=== PATIENT | male | born 1960 | race Caucasian/White ===

== ENCOUNTER 2024-05-25 19:50 | Emergency (ER) | payer OTHER, SELFPAY ==
[2024-05-25] VITALS (10 sets, daily range): BP systolic 99; BP diastolic 61; PULSE 56–81; RESP 16; TEMP 36.7; O2SAT 94–96; BMI 26.9
--- NOTE | 2024-05-25 20:26 | ED_ITS ---
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 He did have any specific injury or specific episode where he started having pain in his shoulders at work. However, yesterday throughout the day he was having an ache in his left shoulder in the top of the shoulder and a little bit into the back shoulder. It also spread to his right shoulder. He is not having any intrascapular back pain. No neck pain. No anterior chest pain. He is not feeling any palpitations. No shortness of breath. No recent cough. No fever. No abdominal pain. He reported to the triage nurse that he has had episodes of shoulder discomfort in the past when he has been stressed. However he denies any current stressors. He has a history of high blood pressure but his regular doctor took him off his lisinopril. He thought that his blood pressure might be too high today so he did take 1 of his old leftover lisinopril is a. Symptoms have not changed after taking that. Related Data Home Medications ?Medication ?Instructions ?Recorded ?Confirmed lisinopril 5 mg tablet 5 mg PO DAILY 05/25/24 05/25/24 Allergies Allergy/AdvReac Type Severity Reaction Status Date / Time No Known Drug Allergies Allergy Verified 05/25/24 20:10 [facility] Social History Smoking Status: Never smoker Do you use any of these nicotine containing products: None How often do you have a drink containing alcohol: never How often do you have six or more drinks on one occasion: Never AUDIT-C Alcohol total score: 0 Non-prescribed substance use: denies use service: No Exam Narrative: Exam Narrative: Constitutional: Appears well-developed and well-nourished. Alert. Conversant through marketing reporting analyst and is fairly fluent in [place] as well.. Non toxic. HENT: Head: Atraumatic. Nose: Nose normal. Mouth/Throat: Oral mucosa is clear and moist. no trismus. Pharynx normal. Tonsils symmetric. No tonsillar enlargement, erythema, or exudate. Eyes: Conjunctivae normal. EOM normal. Pupils equal, round, and reactive to light. No scleral icterus. Neck: Normal range of motion. Neck supple. No tracheal deviation present. No JVD Cardiovascular: Normal rate, regular rhythm. No gallop. No friction rub. No murmur heard. Symmetric radial artery pulses Pulmonary/Chest: Effort normal. No stridor. No respiratory distress. No wheezes. No rales. No rhonchi . No tenderness. Abdominal: Soft. Bowel sounds normal. No distension. No mass. No tenderness. No rebound. No guarding. Musculoskeletal: No C or T-spine tenderness RUE: Normal range of motion. Has a shoulder ache and mild tenderness over the lateral and posterior deltoid. No swelling. No redness. No crepitus. tenderness. No deformity LUE: Normal range of motion. Clavicle nontender. mild tenderness over the lateral and posterior deltoid. No redness. No swelling. No crepitus No deformity Bilaterally humeri, elbows, forearms, wrists, hands, fingers are normal. RLE: Normal range of motion. No edema. No tenderness. No deformity LLE: Normal range of motion. No edema. No tenderness. No deformity Lymph: No cervical adenopathy. Neurological: Mental status normal. Attention normal. Alert and oriented x3. GCS 15. Memory normal. Cognition normal. Cranial Nerves intact II-XII except I did not formally test gag or visual acuity. EOMI. Palate elevates symmetrically and tongue protrudes in the midline. Strength: 5/5 trapezius on the right and left 5/5 deltoid on the right and left 5/5 biceps on the right and left 5/5 triceps on the right and left 5/5 trainer on the right and left 5/5 thumb opposition on the right and le ft 5/5 finger abduction on the right and le ft 5/5 hip flexors (L3) on the right and le ft 5/5 quadriceps (L4) on the right and lef t 5/5 tibialis anterior on the right and l eft 5/5 EHL (L5) on the right and left 5/5 gastrocnemius (S1) on the right and left 5/5 hamstring on the right and left Sensation intact to light touch in both upper extremities (C4-T1) Sensation intact to light touch in Both lower extremities (L4-S1). Finger to nose and coordination normal. Gait normal. Skin: Skin is warm and dry. No rash noted. No pallor. Normal capillary refill. Psychiatric: Normal mood. Normal affect. Const: Vital Signs, click to edit/add: Vital Signs - 24 hr 05/25/24 20:00 05/25/24 21:29 05/25/24 21:30 Temperature 98.1 F Pulse Rate 61 61 Pulse Rate [Left P ulse Oximeter] 81 Respiratory Rate 16 Blood Pressure [Ri ght Upper Arm] 99/61 Pulse Oximetry 95 94 94 Oxygen Delivery Me thod Room Air 05/25/24 21:45 05/25/24 22:00 05/25/24 22:15 Temperature Pulse Rate 58 L 58 L 57 L Pulse Rate [Left P ulse Oximeter] Respiratory Rate Blood Pressure [Ri ght Upper Arm] Pulse Oximetry 94 94 95 Oxygen Delivery Me thod 05/25/24 22:30 05/25/24 22:45 05/25/24 23:00 Temperature Pulse Rate 60 57 L 56 L Pulse Rate [Left P ulse Oximeter] Respiratory Rate Blood Pressure [Ri ght Upper Arm] Pulse Oximetry 94 96 94 Oxygen Delivery Me thod 05/25/24 23:15 Temperature Pulse Rate 61 Pulse Rate [Left P ulse Oximeter] Respiratory Rate Blood Pressure [Ri ght Upper Arm] Pulse Oximetry 95 Oxygen Delivery Me thod Course Vital Signs Vital signs: Initial Vital Signs Temperature 98.1 F 05/25/24 20:00 Temperature Source Temporal Artery Scan 05/25/24 20:00 Pulse Rate 81 05/25/24 20:00 Pulse Rhythm Regular 05/25/24 20:00 Respiratory Rate 16 05/25/24 20:00 Blood Pressure 99/61 05/25/24 20:00 Blood Pressure Mean 73 05/25/24 20:00 Blood Pressure Position Sitting 05/25/24 20:00 Pulse Oximetry 95 05/25/24 20:00 Oxygen Delivery Method Room Air 05/25/24 20:00 Vital Signs Temperature 98.1 F 05/25/24 20:00 Pulse Rate 81 05/25/24 20:00 Respiratory Rate 16 05/25/24 20:00 Blood Pressure 99/61 05/25/24 20:00 Pulse Oximetry 95 05/25/24 20:00 Oxygen Delivery Method Room Air 05/25/24 20:00 Temperature 98.1 F 05/25/24 20:00 Pulse Rate 61 05/25/24 23:15 Respiratory Rate 16 05/25/24 20:00 Blood Pressure 99/61 05/25/24 20:00 Pulse Oximetry 95 05/25/24 23:15 Oxygen Delivery Method Room Air 05/25/24 20:00 Medications Administered Medications: Discontinued Medications Generic Name Dose Route Start Last Admin Trade Name Cholo PRN Reason Stop Dose Admin Aspirin 162 mg 05/25/24 20:52 05/25/24 21:05 Aspirin 81 Mg Tab.Chew PO 05/25/24 20:53 162 mg ONCE ONE Administration Medical Decision Making MDM Narrative Medical decision making narrative: This patient presents to the ER today for evaluation of bilateral shoulder pain without any chest pain or associated back pain.. Differential was broad. No evidence of palpitations, syncope or other cardiac dysrhythmia. We considered possible ACS, however workup with EKG and troponin is negative. Given time since onset of symptoms, I do not think the patient needs to be admitted for further sets of enzymes. EKG shows no evidence for pericarditis. Clinical presentation not suggestive of myocarditis. He did take an extra lisinopril today (not normally supposed to be on lisinopril at all) because he thought his blood pressure might be high. Tonight and ER blood pressure has been low normal at about 99/61. Would advise that he hold off on for the lisinopril until he rechecks with his primary care provider. Chest x-ray shows no evidence for pneumonia, pneumothorax, pulmonary edema, pleural effusion, rib fracture, cardiomegaly. Mediastinum is normal on the x-ray. The patient has no ripping or tearing pain through to the back and has symmetric pulses on exam, no other acute neuro findings so I doubt aortic dissection. Risk of radiation and contrast exposure would outweigh the benefit of CT angiogram. We considered PE for this patient. D-dimer is normal. No wheezing or bronchospasm to suggest COPD/asthma. No signs of chest wall cellulitis, shingles. He has no specific fall or injury or thought immediate onset of pain but he wonders if his shoulder pain could be due to overuse at work. He was lifting some heavy trays and pallets up above shoulder height a couple of days ago. No associated neck pain or numbness or weakness down his arms to suggest cervical radiculopathy. At this point I do not think he needs emergency C-spine MRI, MRs of his shoulder. Would recommend follow-up primary care for further evaluation. With reasonable clinical confidence, I think the patient is safe for outpatient follow up. Discussed return precautions. Questions answered. Patient voices comfort with the plan. Lab Data Labs: Lab Results 05/25/24 Range/Units 20:29 WBC 5.72 (4.50-11.00) K/uL RBC 4.80 (4.30-5.90) m/uL Hgb 14.1 (13.5-17.5) gm/dL Hct 41.8 (37.0-53.0) % MCV 87 (80-100) fL MCH 29 (26-34) pg MCHC 34 (32-36) gm/dL RDW Coeff of [place] 12.3 (11.5-15.5) % Plt Count 243 (140-440) K/uL Neut % (Auto) 60.0 (42.0-72.0) % Lymph % (Auto) 31.1 (20-44) % [place] % (Auto) 6.8 (0.0-11.0) % Eos % (Auto) 1.9 (0.0-7.0) % Baso % (Auto) 0.2 (0.0-3.0) % Neut # (Auto) 3.43 (1.7-7.0) K/uL Lymph # (Auto) 1.78 (0.90-2.90) K/uL [place] # (Auto) 0.40 (0.00-0.90) K/UL Eos # (Auto) 0.11 (0.00-0.50) K/uL Baso # (Auto) 0.01 (0.00-0.30) K/uL Abs Immat Gran (auto) 0.00 (0.00-0.30) K/uL Imm/Tot Granulo (auto) 0.0 % D-Dimer Quant (PE/DVT) 0.24 (0.00-0.50) ug/ml Sodium 140 (135-149) mmol/L Potassium 3.6 (3.6-5.1) mmol/L Chloride 103 (96-114) mmol/L Carbon Dioxide 26 (20-32) mmol/L Anion Gap 11 (7-15) mEq/L BUN 18 (7-30) mg/dL Creatinine 1.2 (0.5-1.5) mg/dL Estimated Creat Clear 52.76 Estimated GFR 68 ml/min Glucose 109 (60-115) mg/dL Calcium 9.4 (8.4-10.6) mg/dL Troponin I < 0.01 L (0.01-0.04) ng/mL ECG Data Attestation: I personally reviewed and interpreted this ECG as follows: Interpretation: Normal sinus rhythm Rate: 69 [place]: 190 QRS axis: Normal axis. No pathologic Q-waves. ST segment/T wave: No ST segment elevation or depression. QTc: 411 Discharge Plan Discharge Prescriptions: No Action lisinopril 5 mg tablet 5 mg PO DAILY Follow Up/Referrals: Dung Mercado MD [Primary Care Provider] -
--- NOTE | 2024-05-25 20:52 | CRLHL7_ITS ---
For Patients: As a result of the Century Cures Act, medical imaging exams and procedure reports are released immediately into your electronic medical record. You may view this report before your referring provider. If you have questions, please contact your health care provider. INDICATION: Bilateral shoulder pain. TECHNIQUE: Chest 2 view. COMPARISON: Chest radiograph 11/05/2010. FINDINGS: No focal consolidation, pleural effusion, or pneumothorax. Normal heart size and pulmonary vascularity. Tortuous aorta. Degenerative changes of the lower thoracic spine. No acute osseous abnormality identified. IMPRESSION: No acute cardiopulmonary findings. Dictated by Cece Corona MD @ 05/25/2024 10:21:12 PM (Electronically Signed)
[2024-05-25 21:05] LABS: Basophils Absolute Auto 0.01 K/uL (0.00-0.30); Basophils Percent Auto 0.2 % (0.0-3.0); Eosinophils Absolute Auto 0.11 K/uL (0.00-0.50); Eosinophils Percent Auto 1.9 % (0.0-7.0); Hematocrit 41.8 % (37.0-53.0); Hemoglobin* 14.1 gm/dL (13.5-17.5); Lymphocytes Absolute Auto 1.78 K/uL (0.90-2.90); Lymphocytes Percent Auto 31.1 % (20-44); Mean Corpuscular HGB Conc 34 gm/dL (32-36); Mean Corpuscular Hemoglobin 29 pg (26-34); Mean Corpuscular Volume 87 fL (80-100); Monocytes Percent Auto 6.8 % (0.0-11.0); Neutrophils Absolute Auto 3.43 K/uL (1.7-7.0); Platelet Count* 243 K/uL (140-440); RDW Coefficient of Variation % 12.3 % (11.5-15.5); White Blood Count* 5.72 K/uL (4.50-11.00)
[2024-05-25] MEDS: ASPIRIN 81 MG TAB.CHEW 162 MG PO (21:05)
[2024-05-25 21:09] LABS: Slide Review Reflex No
[2024-05-25 21:26] LABS: Chloride* 103 mmol/L (96-114); Potassium* 3.6 mmol/L (3.6-5.1); Sodium* 140 mmol/L (135-149)
[2024-05-25 21:29] LABS: Anion Gap 11 mEq/L (7-15); Blood Urea Nitrogen* 18 mg/dL (7-30); Calcium* 9.4 mg/dL (8.4-10.6); Carbon Dioxide* 26 mmol/L (20-32); Creatinine* 1.2 mg/dL (0.5-1.5); Est. Creatinine Clearance* 52.76; Estimated Glomerular Filt Rate 68 ml/min; Glucose* 109 mg/dL (60-115)
--- OUTSIDE RECORDS SUMMARY | 2024-05-25 21:37 | XMS_ITS | Data Portability ---
Author Organization [facility] Address [address] [place] [address] MAMADOU NAJERA [id number] Assessment No assessment recorded. Plan of Treatment Reminders Order Date Submit Date Provider Last Modified By Organization Details Last Modified Time Details Appointments None recorded. Lab PSA, serum or plasma 2022 023 CHRISTIN Not available 3 14:35:58 lipid panel, serum 2022 023 CHRISTIN Not available 3 14:02:38 fecal occult blood, immunoassay , stool 2022 023 CHRISTIN Not available 3 17:26:18 CMP, serum or plasma 2022 023 CHRISTIN Not available 3 14:02:38 HbA1c (hemoglobin A1c), blood 2022 023 [email or web address] Not available 3 11:40:43 microalbumi n, urine 2022 023 [email or web address] Not available 3 11:40:43 hemoglobin A1c, QN, blood 2022 023 CHRISTIN Not available 3 12:05:54 Referral community health worker referral 2022 023 Not available 3 20:25:57 software educator referral 2022 023 [email or web address] Not available 3 17:13:10 Procedures None recorded. Surgeries None recorded. Imaging None recorded. Medication Orders [facility] 5 [facility] tablet 2022 [facility]23 [facility] [place] [address] [place], [address], 15:40:38 lisinopril 5 mg tablet 2022 023 [facility] [place], [address] [place], [address], 13:30:17 Patient TargetsNo targets recorded. Patient Instructions Encounter Date Encounter Id Patient Instructions Last Modified By Organization Details Last Modified Time 02/26/2023 [id number] work on healthy diet and exercise. recheck on labs in 3 months or so. Not available 02/26/2023 20:25:12 05/28/2023 [id number] we will be in touch on labs. continue on lisinopril. see diabetes education Not available 05/28/2023 20:02:53 10/01/2023 [id number] ok to stop the lisinopril and see how blood pressure does off of it. Let us know if blood pressure running above 130/80. 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 or Type 2 diabetes mellitus without complication Referring Physician: Golden Bauman Family Medicine, Encounter Date: 05/28/2023 Results Created Date Observation Date Name Description Value Unit Range Abnormal Flag Note LastModifiedBy Organization Detail LastModifiedTime 08/08/1908/08/2022 lipid panel , serum creatinine 1.09 Not Available [facility] [address] [place], [address], 08/09/2022 14:02:38 08/08/19 23 08/08/2022 lipid panel , serum ALT 23 Not Available [facility] [address] [place], [address], 08/09/2022 14:02:38 08/08/19 23 08/08/2022 lipid panel , serum total cholestrol 244 high Not Available [address] [place], [address], 08/09/2022 14:02:38 08/08/19 23 08/08/2022 lipid panel , serum triglyceride s 452 high Not Available [address] [place], [address], 08/09/2022 14:02:38 08/08/19 23 08/08/2022 lipid panel , serum HDL 46 Not Available [facility] [address] [place], [address], 08/09/2022 14:02:38 08/08/19 23 08/08/2022 lipid panel , serum LDL invali d >400 Not Available [facility] [place] [address] [place], [address], 08/09/2022 14:02:38 08/08/19 23 08/08/2022 CMP, serum or plasm a creatinine 1.09 Not Available [address] [place], [address], 08/09/2022 13:42:18 08/08/19 23 08/08/2022 CMP, serum or plasm a ALT 23 Not Available [address] [place], [address], 08/09/2022 13:42:18 08/08/19 23 08/08/2022 CMP, serum or plasm a total cholestrol 244 high Not Available [address] [place], [address], 08/09/2022 13:42:18 08/08/19 23 08/08/2022 CMP, serum or plasm a triglyceride s 452 high Not Available [address] [place], [address], 08/09/2022 13:42:18 08/08/19 23 08/08/2022 CMP, serum or plasm a HDL 46 Not Available [address] [place], [address], 08/09/2022 13:42:18 08/08/19 23 08/08/2022 CMP, serum or plasm a LDL invali d >400 Not Available [facility] [address] [facility] [place], [address], 08/09/2022 13:42:18 08/20/19 23 08/20/2022 hemog lobin A1c, QN, blood A1C hemoglobin 7.0 Not Available [facility] [address] [facility], [place], [address], 08/21/2022 12:18:21 11/02/19 23 11/01/2022 micro album in, urine hemoglobin A1C 6.78 high Not Available Not Available 10/26 10:43:20 11/02/19 23 11/01/2022 micro album in, urine microalbumin 20 Not Available Not A vailable 11/04/2022 10:43:20 11/02/19 23 11/01/2022 HbA1c (hemo globi n A1c), blood hemoglobin A1C 6.78 high Not Available Not Available 01/2023 14:16:14 11/02/19 23 11/01/2022 HbA1c (hemo globi n A1c), blood microalbumin 20 Not Available Not A vailable 11/01/2022 14:16:14 09/27/19 24 09/27/2023 micro album in/cr eatin ine, ratio panel , urine A1C 6.9 Not Available [facility] [address] [place], [address], 09/30/2023 15:21:04 09/27/19 24 09/27/2023 micro album in/cr eatin ine, ratio panel , urine creatinine 0.8 Not Available [facility] [address] [place], [address], 09/30/2023 15:21:04 09/27/19 24 09/27/2023 micro album in/cr eatin ine, ratio panel , urine eGFR 99 Not Available [facility] [address] [place], [address], 09/30/2023 15:21:04 09/27/19 24 09/27/2023 micro album in/cr eatin ine, ratio panel , urine LDL 160 mg/dL abnormal Not Available [facility] [address] [place], [address], 09/30/2023 15:21:04 09/27/19 24 09/27/2023 micro album in/cr eatin ine, ratio panel , urine HDL 42 mg/dL Not Available [facility] [address] [place], [address], 09/30/2023 15:21:04 09/27/19 24 09/27/2023 micro album in/cr eatin ine, ratio panel , urine cholesterol 232 mg/dL Not Available [facility] [address] [place], [address], 09/30/2023 15:21:04 09/27/19 24 09/27/2023 micro album in/cr eatin ine, ratio panel , urine microalbumin ratio 0 Not Available [facility] [address] [place], [address], 09/30/2023 15:21:04 09/27/19 24 09/27/2023 glyco hemog lobin , total , blood A1C 6.9 Not Available [facility] [address] [place], [address], 09/30/2023 15:21:03 09/27/19 24 09/27/2023 glyco hemog lobin , total , blood creatinine 0.8 Not Available [facility] [address] [place], [address], 09/30/2023 15:21:03 09/27/19 24 09/27/2023 glyco hemog lobin , total , blood eGFR 99 Not Available [facility] [address] [place], [address], 09/30/2023 15:21:03 09/27/19 24 09/27/2023 glyco hemog lobin , total , blood LDL 160 mg/dL abnormal Not Available [facility] [address] [place], [address], 09/30/2023 15:21:03 09/27/19 24 09/27/2023 glyco hemog lobin , total , blood HDL 42 mg/dL Not Available [facility] [address] [place], [address], 09/30/2023 15:21:03 09/27/19 24 09/27/2023 glyco hemog lobin , total , blood cholesterol 232 mg/dL Not Available [facility] [address] [place], [address], 09/30/2023 15:21:03 09/27/19 24 09/27/2023 glyco hemog lobin , total , blood microalbumin ratio 0 Not Available [facility] [address] [place], [address], 09/30/2023 15:21:03 09/27/19 24 09/27/2023 CMP, serum or plasm a A1C 6.9 Not Available [facility] [address] [place], [address], 09/30/2023 15:21:03 09/27/19 24 09/27/2023 CMP, serum or plasm a creatinine 0.8 Not Available [facility] [address] [place], [address], 09/30/2023 15:21:03 09/27/19 24 09/27/2023 CMP, serum or plasm a eGFR 99 Not Available [facility] [address] [place], [address], 09/30/2023 15:21:03 09/27/19 24 09/27/2023 CMP, serum or plasm a LDL 160 mg/dL abnormal Not Available [facility] [address] [place], [address], 09/30/2023 15:21:03 09/27/19 24 09/27/2023 CMP, serum or plasm a HDL 42 mg/dL Not Available [facility] [address] [place], [address], 09/30/2023 15:21:03 09/27/19 24 09/27/2023 CMP, serum or plasm a cholesterol 232 mg/dL Not Available [facility] [address] [place], [address], 09/30/2023 15:21:03 09/27/19 24 09/27/2023 CMP, serum or plasm a microalbumin ratio 0 Not Available [facility] [address] [place], [address], 09/30/2023 15:21:03 09/27/19 24 09/27/2023 glyco hemog lobin , total , blood A1C 6.9 Not Available [facility] [address] [place], [address], 09/27/2023 11:08:27 09/27/19 24 09/27/2023 glyco hemog lobin , total , blood creatinine 0.8 Not Available [facility] [address] [place], [address], 09/27/2023 11:08:27 09/27/19 24 09/27/2023 glyco hemog lobin , total , blood eGFR 99 Not Available [facility] [address] [place], [address], 09/27/2023 11:08:27 09/27/19 24 09/27/2023 glyco hemog lobin , total , blood LDL 160 mg/dL abnormal Not Available [facility] [address] [place], [address], 09/27/2023 11:08:27 09/27/19 24 09/27/2023 glyco hemog lobin , total , blood HDL 42 mg/dL Not Available [facility] [address] [place], [address], 09/27/2023 11:08:27 09/27/19 24 09/27/2023 glyco hemog lobin , total , blood cholesterol 232 mg/dL Not Available [facility] [address] [place], [address], 09/27/2023 11:08:27 09/27/19 24 09/27/2023 glyco hemog lobin , total , blood microalbumin ratio 0 Not Available [facility] [address] [place], [address], 09/27/2023 11:08:27 Result Notes None recorded. Problems Name Problem SNOMED Code Status Onset Date Resolution Date Notes Provider Name and Address Organization Details Recorded Time Hypertensive disorder 98451011 Active 2022 JUAN ANTONIO ORELLANA [address] [place], [address], [facility] [employer] 3 10:05:33 Problem Notes None recorded. Medical Equipment None Reported. Allergies No known drug allergies Medications Name Sig Start Date Stop Date Status Note LastModified by Organization Details LastModified Time amoxicillin 500 mg capsule TAKE TWO CAPSULES BY MOUTH NOW FOLLOWED BY 1 CAPSULE EVERY SIX HOURS 09/30 completed Not Available Not Available Not Available lisinopril 5 mg tablet Take 1 tablet every day by oral route. 2022 active Not Available Not Available Not Avai lable Vitals Date Recorded Body height Body mass index (BMI) Body weight Heart rate Respiratory rate Systolic blood pressure Diastolic blood pressure Provider Name and Address Organization Details Last Updated DateTime 157.48 cm 31.1 kg/m2 81410.7 g 64 /min 12 /min 128 mm[Hg] 82 mm[Hg] JUAN ANTONIO ORELLANA [address] [place], [address], [facility] [employer] 3 10:13:34 Date Recorded Body height Body mass index (BMI) Body weight Body temperature Heart rate Systolic blood pressure Diastolic blood pressure Provider Name and Address Organization Details Last Updated DateTime 3 157.48 cm 31.5 kg/m2 25238.6 1 g 96.8 [degF] 56 /min 154 mm[Hg] 93 mm[Hg] [facility] 3 12:33:05 Date Recorded Body height Body mass index (BMI) Body weight Heart rate Systolic blood pressure Diastolic blood pressure Provider Name and Address Organization Details Last Updated DateTime 3 160.02 cm 29.2 kg/m2 35744.0 2 g 78 /min 100 mm[Hg] 62 mm[Hg] [facility] 3 19:40:45 Date Recorded Body height Body mass index (BMI) Body weight Heart rate Systolic blood pressure Diastolic blood pressure Provider Name and Address Organization Details Last Updated DateTime 3 160.02 cm 30 kg/m2 81870.9 1 g 68 /min 122 mm[Hg] 76 mm[Hg] [facility] 3 19:31:46 Date Recorded Body height Body mass index (BMI) Body weight Heart rate Oxygen saturation Oxygen saturation in Arterial blood by Pulse oximetry Systolic blood pressure Diastolic blood pressure Provider Name and Address Organization Details Last Updated DateTime 4 160.02 cm 29.8 kg/m2 89193.5 2 g 63 /min 98 % 98 % 126 mm[Hg] 78 mm[Hg] [facility]a [facility] 4 19:48:12 Social History Question Answer Notes LastModified by Organizat ion Details LastModified Time Tobacco Smoking Status Never Smoker KENNY ROCHA, ANP-BC [address] [place], [address], [email or web address] 08/01/2022 10:15:17 Do You Use Any Illicit Or Recreational Drugs? No Information not available 08/01/2022 Do You Or Have You Ever Used Any Other Forms Of Tobacco Or Nicotine? No Information not available 08/01/2022 Sex: Unknown Functional Status None recorded. Mental Status None recorded. Family History Relationship Description Onset Age of this Age Resolved Age Notes LastModified by Organization Details LastModified Time Father No current problems or disability [email or web address] Not available 08/01 10:14:07 Mother No current problems or disability [email or web address] Not available 08/01 10:14:07 Medical History No medical history recorded. Past Encounters Encounter ID Performer Location Encounter Start Date Encounter Closed Date Diagnosis/Indication Diagnosis SNOMED-CT Code Diagnosis ICD10 Code [id number] KENNY ROCHA [facility] [address] [place] [address] 08/01/2022 09:56:30 08/01/2022 10:44:22 Screening for malignant neoplasm of colon 971155083 Z12.11 Cholesterol screening 27 0343917 Z13.220 Adult heal th examination 681497903 Z00.00 Screening for malignant neoplasm of prostate 721108825 Z12.5 [id number] KENNY ROCHA [facility] [address] [place] [address] 09/12/2022 12:00:16 09/12/2022 13:24:58 Type 2 diabetes mellitus 13953158 E11.9 Hypertensive disorder 38 463792 I10 Pigmented skin lesion of uncertain nature 453021715 L81.9 [id number] Golden Bauman MD [facility] [address] [place] [phone] 02/26/2023 19:30:11 02/26/2023 20:30:49 Diabetes mellitus 83765503 E11.9 [id number] [facility] [address] [place] [phone] 05/28/2023 19:11:17 05/28/2023 20:06:20 Hypertensive disorder 06888101 I10 Type 2 deni betes mellitus 72575894 E11.9 Type 2 deni betes mellitus without complication 593576732 E11.9 [id number] MD [facility] [address] [place] [phone] 10/01/2023 19:42:20 10/01/2023 20:08:31 Hypertensive disorder 04661462 I10 Health Concerns Section Related Observation LastModified by Organization Detai ls LastModified Time None Recorded Concern Status LastModified by Organization Details LastModified Time None Recorded Advance Directives Directive None Recorded Payers Encounter Date Sequence Insurance Name Policy Number Policy Campbell Covered Member ID Campbell Member ID Guarantor Name 08/01/2022 SLIDING FEE SCHEDULE - DISCOUNT Lily Angelorzano 09/12/2022 SLIDING FEE SCHEDULE - DISCOUNT Lily Angelorzano 02/26/2023 SLIDING FEE SCHEDULE - DISCOUNT Lily Angelorzano 05/28/2023 SLIDING FEE SCHEDULE - DISCOUNT Lily Angelorzano 10/01/2023 SLIDING FEE SCHEDULE - DISCOUNT Lily Easleyzano Notes Date Note Type Note Provider Name and Address Organization Details Recorded Time 08/01/2022 text/html HPI Notes: Pt presents unaccompanied. Renetta vaughn. He is concerned about his blood pressure. Only other concern today is he is asking about a recheck of his colon. It was not entirely clear by his historical account what happened, but he denies cancer or bleeding. It was possibly an infection and he was given medication, but pain was located in lower part of abdomen, just above bladder. He no longer has any abdominal pain. He denies constipation, diarrhea, or other problems with his stool. He is interested in a colon cancer screening JUAN ANTONIO ORELLANA [address] [place], [address], [facility] [employer] 08/01/2022 10:59:49 09/12/2022 text/html HPI Notes: Pt presents for follow-up of bp and lab results. Requesting Imiquimod 5% for warts on back of neck. JUAN ANTONIO ORELLANA [address] [place], [address], [facility] [employer] 09/12/2022 17:13:59 02/26/2023 text/html HPI Notes: here for follow up on labs. hgA1c elevated at 6.4. Godlen Bauman MD [address] [place], [address], [facility] [employer] 02/26/2023 20:29:24 05/28/2023 text/html HPI Notes: Hypertension IM/FM Reported by patient. Notes: here for follow up on diabetes. has been working on healthy diet. 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 Wonders if he could stop taking taking the lisinopril. Golden Bauman MD [address] [facility], [address], [facility] [employer] 10/01/2023 20:06:19
--- OUTSIDE RECORDS SUMMARY | 2024-05-25 21:37 | XMS_ITS | Clinical Summary ---
Author Organization [employer] [facility] [employer] [facility] [place], [place] [address] Care Team Providers Care Chemical Research Worker Name Role Phone Ahsan Rodriguez MD Primary Care Provider U navailable Allergies Active Allergy Reactions Criticality Noted Date Comments Aspirin Other - Describe In Comment Field 03/06/2012 Bad back pain Medications No known medications Active Problems Problem Noted Date Diagnosed Date Closed fracture of metatarsal bone(s) 03/17/2012 Acute left-sided weakness 11/05/2010 Overview (11/20/2010): For 15 min on 11/05/10 Headache(784.0) 11/05/2010 Immunizations Name Administration Dates Next Due Influenza, IIV3 (Age >=3 years) 07/16/2011 Tdap 07/16/2011 Family History Medical History Relation Name Comments Other Father father's medica l history unknown Heart Disease Mother of [place] at age 87 Other Other no family histo ry of early cardiac or cerebrovascular disease Relation Name Status Comments Father Mother Other Social History Tobacco Use Types Packs/Day Years Used Date Smoking Tobacco: Some Days Smokeless Tobacco: Never Comments:1 cigaretter per we ek Alcohol Use Standard Drinks/Week Comments Yes 0 (1 standard drink = 0.6 oz pur e alcohol) drinks once per month Sex and Gender Information Value Date Recorded Sex Assigned at Not on file Gender Identity Not on file Sexual Orientation Not on file Obstetrics History Last Filed Vital Signs Vital Sign Reading Time Taken Comments Blood Pressure 119/76 04/03/2012 3:15 PM CDT Pulse 67 04/03/2012 3:15 PM CDT Temperature 37 ??C (98.6 ??F) 11/06/2010 5:00 PM CDT Respiratory Rate 16 11/06/2010 5:00 PM CDT Oxygen Saturation 98% 11/06/2010 5:00 PM CDT Inhaled Oxygen Concentration - - Weight 73 kg (161 lb) 04/03/2012 3:15 PM CDT Height 154.9 cm (5' 1) 11/05/2010 6:00 PM CDT Body Mass Index 30.42 11/05/2010 6:00 PM CDT Plan of Treatment Health Maintenance Due Date Last Done Comments Depression screening for age 12+ 1972 HIV for age 15-65 1975 BMI (ht and wt on same day) for age 18+ 1978 Hepatitis C screening for ag e 18-79 1978 Colonoscopy through age 75 2005 Zoster (shingles) series for age 50+ (1 of 2) 2010 Tetanus booster 07/16/2021 07/16/2011, 07/16/2011 COVID-19 vaccine series (2023- season) 2024 Influenza for age 50-64 03/28/2024 07/16/20 11, 07/16/2011 Lipids for age 45-75 08/08/2027 08/08/2022, 11/06/2010 Tdap Completed 07/16/2011 Pneumococcal series for age 6-64 Aged Out No longer eligible b ased on patient's age to complete this topic Procedures Procedure Name Priority Date/Time Associated Diagnosis Comments LIPID PANEL Routine 08/08/2022 1:24 PM SEED LABORATORY TECHNICIAN from Last 3 Months or Most Recently Relevant to Health Maintenance Results * (ABNORMAL) LIPID PANEL (08/08/2022 1:24 PM SEED LABORATORY TECHNICIAN) CHOLESTEROL,TOTAL 244(H) 100 - 199 mg/dL 08/09/2022 11:18 AM [facility] TRIGLYCERIDES 452(H) <150 mg/dL 08/09/2022 11:18 AM [facility] HDL CHOLESTEROL 46 >40 mg/dL 11:18 AM [facility] NON-HDL CHOLESTEROL 198(H) <145 mg/dl 08/09/2022 11:18 AM [facility] CHOL/HDL RATIO 5.30(H) <4.50 08/09/2022 11:18 AM SEED LABORATORY TECHNICIAN [facility] LDL CHOLESTEROL 11:18 AM [facility] Comment:Invalid LDL when Tri g >400. VLDL CHOLESTEROL COMMENT 08/09/2022 11:18 AM SEED LABORATORY TECHNICIAN [facility] Comment:Unable to calculate VLDL. PROVIDER ORDERED STATUS RANDOM 08/09/2022 11:18 AM SEED LABORATORY TECHNICIAN [facility] Blood BLOOD SPECIMEN / Unknown 08/08/2022 1:24 PM SEED LABORATORY TECHNICIAN 08/09/2022 10:23 AM SEED LABORATORY TECHNICIAN Scarlett Galaviz NP CHEMISTRY [facility] [address] [place] [address] from Last 3 Months or Most Recently Relevant to Health Maintenance Advance Directives * Full Code (Latest Code Status on File) Date Activated Date Inactivated Comments 11/05/2010 8:12 PM 11/06/2010 8:51 PM Care Teams Chemical Research Worker Relationship Specialty Start Date End Date Ahsan Rodriguez MD PCP - General Family Practice 12/18/10
[2024-05-25 21:49] LABS: Troponin I* < 0.01 ng/mL (0.01-0.04)
[2024-05-25 23:20] LABS: D Dimer Quantitative* 0.24 ug/ml (0.00-0.50)
== END 2024-05-25 23:43 | disposition home or self-care (01) ==
PROVIDERS: Emergency Provider Emergency Medicine; PCP Family Medicine
DX: M25.512 Pain in left shoulder (principal); M25.511 Pain in right shoulder
CPT/HCPCS: 36415; 71046; 80048; 84484; 85025; 85379; 93005; 99283; 99284; A9270